=== PATIENT | male | born 1975 | race Caucasian/White ===

== ENCOUNTER 2020-03-21 13:52 | Outpatient (CLI) | payer OTHER, SELFPAY ==
--- NOTE | 2020-03-21 14:13 | ECG_ITS ---
Measurements Intervals [place] Rate: 100 P: 63 VT: 165 QRS: 72 QRSD: 94 T: 29 QT: 345 QTc: 447 Interpretive Statements [address]US [address] ELEVATION IN ANTERIOR LEADS- PROBABLY EARLY REPOLARIZATION NONSPECIFIC T-WAVE ABNORMALITY- INFERIOR LEADS BORDERLINE ECG Electronically Signed On 03-21-2020 14:37:29 CDT by Bassem Arce D.O.
[2020-03-21 14:48] LABS: Blood Urea Nitrogen 8 mg/dL (9-20); Calcium 8.8 mg/dL (8.4-10.2); Carbon Dioxide 27 mmol/L (22-30); Chloride 99 mmol/L (98-107); Estimated Glomerular Filt Rate > 60; Glucose 263 mg/dL (75-110); Sodium 135 mmol/L (137-145)
== END 2020-03-21 13:53 | disposition home or self-care (01) ==
LOC: ANHLAB 14:00
PROVIDERS: PCP Internal Medicine; Visit Provider Orthopaedic Surgery
DX: Z01.818 Encounter for other preprocedural examination (principal); R94.31 Abnormal electrocardiogram [ECG] [EKG]
CPT/HCPCS: 36415; 80048; 93005

== ENCOUNTER 2022-01-09 12:42 | Outpatient (CLI) | payer BC, SELFPAY ==
--- NOTE | 2022-01-09 17:00 | WPDSIXMINUTE ---
Six Minute Walk Procedure Procedure Performed Pulmonary Stress Test (6 min walk) Six Minute Walk This is a 6 minute walk test. The test was performed and interpreted in accordance with the 2014 ERS/ATS task force guidelines. Findings: The patient's resting room air oxygen saturation measured by pulse oximetry was 94% and heart rate was 100 bpm. Patient ambulated for 396 meters and oxygen saturation remained 88 to 97%. Heart rate at the end of the study was 111 bpm. The patient should have a formal home O2 assessment to determine supplemental oxygen needs. There are no prior studies for comparison.
== END 2022-01-09 12:43 | disposition home or self-care (01) ==
LOC: ANHPFT 12:43
PROVIDERS: PCP Internal Medicine; Visit Provider Internal Medicine
DX: I26.99 Other pulmonary embolism without acute cor pulmonale (principal)
CPT/HCPCS: 94618